=== PATIENT | male | born 1975 | race Caucasian/White ===

== ENCOUNTER 2018-06-11 09:57 | Outpatient (CLI) | payer BC ==
--- NOTE | 2018-06-11 10:59 | RAD ---
THORACIC SPINE 3 VIEWS: HISTORY: Pain. COMPARISON: None. FINDINGS: Limited evaluation of the upper thoracic spine on the lateral projection. Based on the images provide d, mild loss of disk space height involving the distal thoracic spine. No malalignment or fracture. IMPRESSION: Mild loss of disk space height. No fracture. Results of the study were discussed with Day Funez 06/11/2018 at 10:56 a.m. CODE CR POS: [facility]
== END 2018-06-11 09:58 | disposition home or self-care (01) ==
LOC: SCSRAD 09:57
PROVIDERS: ATTEND Physician Assistant Medical
DX: M54.9 Dorsalgia, unspecified (principal); M51.84 Other intervertebral disc disorders, thoracic region
CPT/HCPCS: 72072